=== PATIENT | male | born 1985 | race Caucasian/White ===

== ENCOUNTER 2017-03-20 20:11 | Emergency (ER) | payer OTHER ==
[2017-03-20 21:10] LABS: HEMOGLOBIN 14.9 gm/dl (14.0-17.5); RED BLOOD COUNT 5.07 M/UL (4.20-5.50); WHITE BLOOD COUNT 11.5 K/UL (4.5-11.0)
[2017-03-20 21:26] LABS: BUN/CREATININE RATIO 17 (0-10)
== END 2017-03-21 00:36 | disposition home or self-care (01) ==
LOC: ER1 20:11
PROVIDERS: Family Medicine
DX: K76.0 Fatty (change of) liver, not elsewhere classified (principal); S29.012A Strain of muscle and tendon of back wall of thorax, initial encounter; F17.210 Nicotine dependence, cigarettes, uncomplicated; W18.30XA Fall on same level, unspecified, initial encounter
CPT/HCPCS: 36415; 80053; 81001; 82150; 83690; 85025; 96374; 96375; 99284; J2270; J2405; J7050; Q9962